=== PATIENT | male | born 1960 | race African-American/Black ===

== ENCOUNTER 2017-07-19 14:53 | Inpatient (IN) ==
[2017-07-19] MEDS ORDERED: DEXTROSE 50% 25 GM/50 ML VIAL IV PRN (20:59)
[2017-07-19] MEDS ORDERED: ONDANSETRON 4 MG/2 ML VIAL IV PRN (20:59)
[2017-07-19] MEDS ORDERED: GLUCAGON 1 MG VIAL IM PRN (20:59)
[2017-07-19] MEDS: DEXTROSE 5% NACL 0.45% 1,000 ML IV SCH (21:28)
[2017-07-19] MEDS: INSULIN REGULAR 100 UNIT/ML SUBCUT SCH (21:29)
[2017-07-19] MEDS: DOCUSATE SODIUM 100 MG CAPSULE PO SCH (21:29)
[2017-07-19 21:48] LABS: Basophils % 0.5 % (0.0-0.8); Eosinophils # 0.5 10*3/uL (0.0-0.87); Eosinophils % 6.9 % (0.00-10.9); Hematocrit 24.7 VOL% (42.0-52.0); Hemoglobin 8.2 GM/DL (14.0-18.0); Immature Granulocytes % 0.5 %; Immature Granulocytes Absolute 0.03 #; Lymphocytes # 0.9 10*3/uL (1.4-4.0); Lymphocytes % 13.3 % (21.2-54.2); Mean Corpuscular HGB Conc 33.2 GM/DL (32-36); Mean Corpuscular Hemoglobin 27 PG (27-34); Mean Corpuscular Volume 82.1 FL (87-102); Mean Platelet Volume 10.4 FL (9.6-12.0); Monocytes # 0.5 10*3/uL (0.11-0.8); Monocytes % 7.7 % (1.7-12.7); Neutrophils # 4.7 10*3/uL (1.4-7.4); Neutrophils % 71.1 % (38.7-73.9); Platelet Count 267 T/CUMM (130-400); Red Blood Count 3.01 MC/CUMM (3.8-5.5); Red Cell Distribution Width 17.6 % (9.3-17.3); White Blood Count 6.5 T/CUMM (4-12)
[2017-07-19 21:55] LABS: Apearance,Urine CLEAR (Clear); Bilirubin,Urine Negative (Negative); Blood, Urine Small mg/dL (Negative); Glucose,Urine (UA) 50 mg/dL (Negative); Ketones,Urine Negative (Negative); Nitrite,Urine Negative (Negative); Protein,Urine 100 MG/DL; RBC,Urine <1 /HPF (0-4); Urine Color Colorless (Yellow); Urine Specific Gravity 1.006 (1.001-1.035); Urine Urobilinogen < 2.0 EU/DL (0.2-1.0); WBC,Urine <1 /HPF (0-6)
[2017-07-19 22:09] LABS: Alanine Aminotransferase 15 U/L (16-61); Albumin 3.4 G/DL (3.4-5.0); Alkaline Phosphatase 88 U/L (45-117); Aspartate Amino Transferase 14 U/L (0-37); Bilirubin,Total < 0.39 MG/DL (0.2-1.0); Blood Urea Nitrogen 85 MG/DL (7-18); Calcium 6.3 MG/DL (8.5-10.1); Glucose 114 MG/DL (74-106); Osmolality,Calculated 305.4 MOS/KG (273-304); Potassium 3.4 MMOL/L (3.5-5.1); Sodium 140 MMOL/L (136-145); Total Protein 6.1 G/DL (6.4-8.3)
[2017-07-19 23:20] LABS: Hepatitis A Ab IgM Quant 0.14 Index; Hepatitis A Ab IgM Result Negative (Negative); Hepatitis B Core IgM Result Negative (Negative); Hepatitis B Surface Ag Quant < 0.10 Index; Hepatitis B Surface Ag Result Negative (Negative); Hepatitis C Virus Ab Quant 0.02 Index; Hepatitis C Virus Ab Result Negative (Negative)
[2017-07-20 06:54] LABS: Basophils # 0.1 10*3/uL (0.0-0.2); Basophils % 0.8 % (0.0-0.8); Eosinophils # 0.5 10*3/uL (0.0-0.87); Hematocrit 23.8 VOL% (42.0-52.0); Immature Granulocytes % 0.5 %; Immature Granulocytes Absolute 0.03 #; Lymphocytes % 15.9 % (21.2-54.2); Mean Corpuscular HGB Conc 33.6 GM/DL (32-36); Mean Corpuscular Hemoglobin 28 PG (27-34); Mean Corpuscular Volume 82.6 FL (87-102); Mean Platelet Volume 10.7 FL (9.6-12.0); Monocytes # 0.5 10*3/uL (0.11-0.8); Monocytes % 8.2 % (1.7-12.7); Neutrophils # 3.9 10*3/uL (1.4-7.4); Neutrophils % 65.6 % (38.7-73.9); Platelet Count 272 T/CUMM (130-400); Red Blood Count 2.88 MC/CUMM (3.8-5.5); Red Cell Distribution Width 18.1 % (9.3-17.3)
[2017-07-20] MEDS ORDERED: CLINDAMYCIN INJ 900 MG in PREMIX 1 EACH IV ONE (07:00)
[2017-07-20 07:10] LABS: Albumin 2.8 G/DL (3.4-5.0); Calcium 6.4 MG/DL (8.5-10.1); Osmolality,Calculated 306.3 MOS/KG (273-304); Phosphorous 7.2 MG/DL (2.5-4.9); Potassium 3.5 MMOL/L (3.5-5.1)
[2017-07-20] MEDS ORDERED: SODIUM CHLORIDE 0.9% 1,000 ML IV SCH (08:00)
[2017-07-20] MEDS: INSULIN REGULAR 100 UNIT/ML SUBCUT SCH ×4 (08:54→21:08)
[2017-07-20] MEDS ORDERED: HEPARIN 5,000 UNIT/1 ML VIAL ONE (09:19)
[2017-07-20] MEDS ORDERED: BUPIVACAINE 0.5% /EPI 10 ML VIAL ONE (09:19)
[2017-07-20] MEDS ORDERED: PROPOFOL 200 MG/20 ML VIAL IV ONE (10:30)
[2017-07-20] MEDS ORDERED: MIDAZOLAM 2 MG/2 ML VIAL ONE (10:31)
[2017-07-20] MEDS ORDERED: fentaNYL 100 MCG/2 ML VIAL ONE (10:31)
[2017-07-20] MEDS: CALCIUM ACETATE 667 MG CAPSULE PO SCH ×3 (11:43→17:30)
[2017-07-20] MEDS: CALCITRIOL 0.25 MCG CAPSULE PO SCH (11:50)
[2017-07-20] MEDS: amLODIPine 10 MG TABLET PO SCH (11:50)
[2017-07-20] MEDS: PANTOPRAZOLE 40 MG TABLET PO SCH (11:50)
[2017-07-20] MEDS: cloNIDine 0.1 MG TABLET PO SCH ×2 (11:50→21:07)
[2017-07-20] MEDS: DOCUSATE SODIUM 100 MG CAPSULE PO SCH ×2 (11:50→21:07)
[2017-07-20] MEDS: ENOXAPARIN 30 MG/0.3 ML SYRINGE SUBCUT SCH (11:52)
[2017-07-20] MEDS: oxyCODONE/ACETAMINOPHEN 5-325 MG TABLET PO PRN ×2 (14:18→20:10)
[2017-07-20] MEDS ORDERED: SODIUM CHLORIDE 0.9% 1,000 ML IV PRN (22:30)
[2017-07-21] MEDS: DEXTROSE 5% NACL 0.45% 1,000 ML IV SCH (00:10)
[2017-07-21 03:41] LABS: Basophils # 0.1 10*3/uL (0.0-0.2); Basophils % 0.9 % (0.0-0.8); Eosinophils # 0.6 10*3/uL (0.0-0.87); Eosinophils % 10.1 % (0.00-10.9); Hematocrit 24.6 VOL% (42.0-52.0); Hemoglobin 8.1 GM/DL (14.0-18.0); Immature Granulocytes % 0.4 %; Immature Granulocytes Absolute 0.02 #; Lymphocytes # 0.9 10*3/uL (1.4-4.0); Mean Corpuscular HGB Conc 32.9 GM/DL (32-36); Mean Corpuscular Hemoglobin 28 PG (27-34); Mean Platelet Volume 9.9 FL (9.6-12.0); Monocytes # 0.5 10*3/uL (0.11-0.8); Neutrophils # 3.4 10*3/uL (1.4-7.4); Neutrophils % 62.6 % (38.7-73.9); Platelet Count 229 T/CUMM (130-400); Red Blood Count 2.93 MC/CUMM (3.8-5.5); Red Cell Distribution Width 17.6 % (9.3-17.3); White Blood Count 5.5 T/CUMM (4-12)
[2017-07-21] MEDS: CALCIUM ACETATE 667 MG CAPSULE PO SCH ×3 (07:50→17:33)
[2017-07-21] MEDS: INSULIN REGULAR 100 UNIT/ML SUBCUT SCH ×4 (07:50→21:39)
[2017-07-21] MEDS: amLODIPine 10 MG TABLET PO SCH (07:55)
[2017-07-21] MEDS: PANTOPRAZOLE 40 MG TABLET PO SCH (07:55)
[2017-07-21] MEDS: CALCITRIOL 0.25 MCG CAPSULE PO SCH (07:55)
[2017-07-21] MEDS: DOCUSATE SODIUM 100 MG CAPSULE PO SCH ×2 (07:55→21:39)
[2017-07-21] MEDS: cloNIDine 0.1 MG TABLET PO SCH ×2 (07:55→21:39)
[2017-07-21] MEDS ORDERED: SODIUM CHLORIDE 0.9% 1,000 ML IV PRN (08:04)
[2017-07-21] MEDS ORDERED: EPOETIN ALFA 2,000 UNIT/1 ML VIAL IV PRN (10:48)
[2017-07-21] MEDS: ENOXAPARIN 30 MG/0.3 ML SYRINGE SUBCUT SCH (11:07)
[2017-07-22] MEDS: CALCITRIOL 0.25 MCG CAPSULE PO SCH (09:52)
[2017-07-22] MEDS: CALCIUM ACETATE 667 MG CAPSULE PO SCH ×3 (09:53→17:27)
[2017-07-22] MEDS: ENOXAPARIN 30 MG/0.3 ML SYRINGE SUBCUT SCH ×2 (09:53→09:55)
[2017-07-22] MEDS: PANTOPRAZOLE 40 MG TABLET PO SCH (09:53)
[2017-07-22] MEDS: amLODIPine 10 MG TABLET PO SCH (09:53)
[2017-07-22] MEDS: cloNIDine 0.1 MG TABLET PO SCH ×2 (09:53→21:14)
[2017-07-22] MEDS: DOCUSATE SODIUM 100 MG CAPSULE PO SCH ×2 (09:53→21:14)
[2017-07-22] MEDS: INSULIN REGULAR 100 UNIT/ML SUBCUT SCH ×2 (09:56→11:39)
[2017-07-23] MEDS ORDERED: HEPARIN 10,000 UNIT/10 ML VIAL IV SCH (07:30)
[2017-07-23] MEDS: cloNIDine 0.1 MG TABLET PO SCH ×2 (08:11→21:25)
[2017-07-23] MEDS: CALCIUM ACETATE 667 MG CAPSULE PO SCH ×3 (08:11→18:25)
[2017-07-23] MEDS: amLODIPine 10 MG TABLET PO SCH (08:12)
[2017-07-23] MEDS: PANTOPRAZOLE 40 MG TABLET PO SCH (08:12)
[2017-07-23] MEDS: DOCUSATE SODIUM 100 MG CAPSULE PO SCH ×2 (08:12→21:25)
[2017-07-23] MEDS: CALCITRIOL 0.25 MCG CAPSULE PO SCH (08:12)
[2017-07-23] MEDS: oxyCODONE/ACETAMINOPHEN 5-325 MG TABLET PO PRN (08:23)
[2017-07-23] MEDS ORDERED: EPOETIN ALFA 10,000 UNIT/1 ML VIAL IV PRN (09:13)
[2017-07-24] MEDS: PANTOPRAZOLE 40 MG TABLET PO SCH (10:15)
[2017-07-24] MEDS: amLODIPine 10 MG TABLET PO SCH (10:15)
[2017-07-24] MEDS: CALCIUM ACETATE 667 MG CAPSULE PO SCH ×3 (10:15→16:43)
[2017-07-24] MEDS: DOCUSATE SODIUM 100 MG CAPSULE PO SCH ×2 (10:15→20:25)
[2017-07-24] MEDS: cloNIDine 0.1 MG TABLET PO SCH ×2 (10:15→20:25)
[2017-07-24] MEDS: CALCITRIOL 0.25 MCG CAPSULE PO SCH (10:15)
[2017-07-25] MEDS: DOCUSATE SODIUM 100 MG CAPSULE PO SCH (09:04)
[2017-07-25] MEDS: CALCITRIOL 0.25 MCG CAPSULE PO SCH (09:04)
[2017-07-25] MEDS: PANTOPRAZOLE 40 MG TABLET PO SCH (09:04)
[2017-07-25] MEDS: amLODIPine 10 MG TABLET PO SCH (09:04)
[2017-07-25] MEDS: CALCIUM ACETATE 667 MG CAPSULE PO SCH ×3 (09:04→16:41)
[2017-07-25] MEDS: cloNIDine 0.1 MG TABLET PO SCH (09:04)
[2017-07-25 22:49] VITALS: BP 150/96
== END 2017-07-25 20:00 | disposition home or self-care (01) | DRG 673 ==
LOC: N.ADMINP 15:10 → N.2E 17:25
PROVIDERS: ADMIT Internal Medicine Nephrology; ATTEND Internal Medicine Nephrology

== ENCOUNTER 2020-01-12 11:39 | Inpatient (IN) ==
[2020-01-12 14:11] LABS: Basophils # 0.1 10*3/uL (0.0-0.2); Basophils % 1.4 % (0.0-0.8); Eosinophils # 0.3 10*3/uL (0.0-0.87); Hematocrit 32.8 VOL% (42.0-52.0); Hemoglobin 10.2 GM/DL (14.0-18.0); Immature Granulocytes % 0.6 %; Immature Granulocytes Absolute 0.04 #; Lymphocytes # 0.7 10*3/uL (1.4-4.0); Lymphocytes % 9.6 % (21.2-54.2); Mean Corpuscular HGB Conc 31.1 GM/DL (32-36); Mean Corpuscular Volume 93.2 FL (87-102); Mean Platelet Volume 9.6 FL (9.6-12.0); Monocytes % 7.5 % (1.7-12.7); Neutrophils % 76.9 % (38.7-73.9); Platelet Count 574 T/CUMM (130-400); Red Blood Count 3.52 MC/CUMM (3.8-5.5); Red Cell Distribution Width 18.1 % (9.3-17.3); White Blood Count 7.2 T/CUMM (4-12)
[2020-01-12 14:16] LABS: Apearance,Urine CLOUDY (Clear); Bilirubin,Urine Negative (Negative); Blood, Urine Negative (Negative); Glucose,Urine (UA) 50 mg/dL (Negative); Ketones,Urine Negative (Negative); Mucus,Urine Occasional /LPF (Occasional); Nitrite,Urine Negative (Negative); Protein,Urine >=500 MG/DL; Squamous Epithelial Cell,Urine Few /HPF (0-10); Urine Color Yellow (Yellow); Urine Specific Gravity 1.009 (1.001-1.035); Urine Urobilinogen < 2.0 EU/DL (0.2-1.0); WBC,Urine 21 /HPF (0-6)
[2020-01-12 14:31] LABS: Albumin 2.4 G/DL (3.4-5.0); Bilirubin,Total 0.5 MG/DL (0.2-1.0); Calcium 9.7 MG/DL (8.5-10.1); Ferritin 1573.8 ng/ml (26-388); Osmolality,Calculated 267.2 MOS/KG (273-304); Total Protein 9.5 G/DL (6.4-8.3)
[2020-01-12] MEDS ORDERED: DEXTROSE 10% 250 ML BAG IV PRN (16:12)
[2020-01-12] MEDS ORDERED: GLUCAGON 1 MG VIAL IM PRN (16:12)
[2020-01-12] MEDS ORDERED: ONDANSETRON 4 MG/2 ML VIAL IV PRN (16:12)
[2020-01-12] MEDS: AZITHROMYCIN INJ 500 MG in SODIUM CHLORIDE 0.9% 250 ML IV SCH (18:12)
[2020-01-12] MEDS: cefTRIAXone 1,000 MG in SYRINGE 1 EACH IV SCH (18:12)
[2020-01-12] MEDS: HEPARIN 5,000 UNIT/1 ML VIAL SUBCUT SCH (20:36)
[2020-01-12] MEDS: ACETAMINOPHEN 325 MG TABLET PO PRN (23:52)
[2020-01-13 04:01] LABS: Basophils # 0.1 10*3/uL (0.0-0.2); Basophils % 1.2 % (0.0-0.8); Eosinophils # 0.3 10*3/uL (0.0-0.87); Eosinophils % 3.9 % (0.00-10.9); Hemoglobin 8.4 GM/DL (14.0-18.0); Immature Granulocytes % 0.5 %; Immature Granulocytes Absolute 0.03 #; Lymphocytes # 0.8 10*3/uL (1.4-4.0); Lymphocytes % 12.2 % (21.2-54.2); Mean Corpuscular HGB Conc 31.1 GM/DL (32-36); Mean Corpuscular Volume 93.4 FL (87-102); Mean Platelet Volume 9.5 FL (9.6-12.0); Monocytes % 11.7 % (1.7-12.7); Neutrophils % 70.5 % (38.7-73.9); Platelet Count 506 T/CUMM (130-400); Red Blood Count 2.89 MC/CUMM (3.8-5.5); Red Cell Distribution Width 18.2 % (9.3-17.3); White Blood Count 6.6 T/CUMM (4-12)
[2020-01-13 04:35] LABS: Alanine Aminotransferase < 9 U/L (16-61); Alkaline Phosphatase 55 U/L (45-117); Aspartate Amino Transferase 12 U/L (0-37); Bilirubin,Total < 0.39 MG/DL (0.2-1.0); Blood Urea Nitrogen 18 MG/DL (7-18); Calcium 9.1 MG/DL (8.5-10.1); Estimated Glom Filtration Rate 9 ML/MIN; Glucose 107 MG/DL (74-106); Osmolality,Calculated 267.4 MOS/KG (273-304); Total Protein 7.6 G/DL (6.4-8.3)
[2020-01-13 04:58] LABS: Ferritin 1418.8 ng/ml (26-388)
[2020-01-13] MEDS: HEPARIN 5,000 UNIT/1 ML VIAL SUBCUT SCH ×3 (05:22→20:53)
[2020-01-13] MEDS ORDERED: PANTOPRAZOLE 40 MG TABLET PO SCH (09:00)
[2020-01-13] MEDS: amLODIPine 10 MG TABLET PO SCH (09:53)
[2020-01-13] MEDS: cloNIDine 0.1 MG TABLET PO SCH ×2 (09:53→20:53)
[2020-01-13] MEDS: ACETAMINOPHEN 325 MG TABLET PO PRN ×2 (12:30→20:56)
[2020-01-13 15:47] LABS: INR 1.1; PT Patient Result 11.8 SECS (9.8-11.9)
[2020-01-13] MEDS: cefTRIAXone 1,000 MG in SYRINGE 1 EACH IV SCH (17:17)
[2020-01-13] MEDS: CINACALCET 30 MG TABLET PO SCH (17:17)
[2020-01-13] MEDS: CALCIUM ACETATE 667 MG CAPSULE PO SCH (17:17)
[2020-01-13] MEDS: AZITHROMYCIN INJ 500 MG in SODIUM CHLORIDE 0.9% 250 ML IV SCH (17:18)
[2020-01-13] MEDS ORDERED: LABETALOL 20 MG/4 ML SYRINGE IV PRN (17:27)
[2020-01-14] MEDS: HEPARIN 5,000 UNIT/1 ML VIAL SUBCUT SCH ×3 (06:37→20:21)
[2020-01-14 07:04] LABS: Basophils # 0.1 10*3/uL (0.0-0.2); Basophils % 1.3 % (0.0-0.8); Eosinophils # 0.3 10*3/uL (0.0-0.87); Eosinophils % 4.4 % (0.00-10.9); Hematocrit 26.5 VOL% (42.0-52.0); Hemoglobin 8.3 GM/DL (14.0-18.0); Immature Granulocytes % 0.6 %; Immature Granulocytes Absolute 0.04 #; Lymphocytes # 0.9 10*3/uL (1.4-4.0); Lymphocytes % 13.9 % (21.2-54.2); Mean Corpuscular HGB Conc 31.3 GM/DL (32-36); Mean Platelet Volume 10.1 FL (9.6-12.0); Monocytes % 9.1 % (1.7-12.7); Neutrophils % 70.7 % (38.7-73.9); Platelet Count 493 T/CUMM (130-400); Red Blood Count 2.88 MC/CUMM (3.8-5.5); Red Cell Distribution Width 18.5 % (9.3-17.3); White Blood Count 6.4 T/CUMM (4-12)
[2020-01-14 07:16] LABS: Ferritin 1482.4 ng/ml (26-388)
[2020-01-14 07:21] LABS: Alanine Aminotransferase < 6 U/L (16-61); Albumin 1.9 G/DL (3.4-5.0); Alkaline Phosphatase 62 U/L (45-117); Aspartate Amino Transferase 8 U/L (0-37); Blood Urea Nitrogen 26 MG/DL (7-18); Calcium 9.5 MG/DL (8.5-10.1); Estimated Glom Filtration Rate 6 ML/MIN; Glucose 104 MG/DL (74-106); Osmolality,Calculated 268.5 MOS/KG (273-304); Total Protein 7.6 G/DL (6.4-8.3)
[2020-01-14] MEDS: AZITHROMYCIN 250 MG TABLET PO SCH (08:06)
[2020-01-14] MEDS: CINACALCET 30 MG TABLET PO SCH ×3 (08:06→17:49)
[2020-01-14] MEDS: amLODIPine 10 MG TABLET PO SCH (08:06)
[2020-01-14] MEDS: CALCIUM ACETATE 667 MG CAPSULE PO SCH ×4 (08:06→17:10)
[2020-01-14] MEDS: cloNIDine 0.1 MG TABLET PO SCH ×2 (08:07→20:21)
[2020-01-14] MEDS: ACETAMINOPHEN 325 MG TABLET PO PRN (08:08)
[2020-01-14] MEDS: cefTRIAXone 1,000 MG in SYRINGE 1 EACH IV SCH (17:22)
[2020-01-15] MEDS: ACETAMINOPHEN 325 MG TABLET PO PRN (00:35)
[2020-01-15 06:02] LABS: Basophils # 0.1 10*3/uL (0.0-0.2); Basophils % 1.4 % (0.0-0.8); Eosinophils # 0.3 10*3/uL (0.0-0.87); Hematocrit 29.2 VOL% (42.0-52.0); Immature Granulocytes % 0.4 %; Immature Granulocytes Absolute 0.03 #; Lymphocytes # 1.1 10*3/uL (1.4-4.0); Lymphocytes % 14.7 % (21.2-54.2); Mean Corpuscular HGB Conc 30.8 GM/DL (32-36); Mean Corpuscular Volume 93.9 FL (87-102); Mean Platelet Volume 9.7 FL (9.6-12.0); Monocytes % 8.4 % (1.7-12.7); Neutrophils % 71.1 % (38.7-73.9); Platelet Count 569 T/CUMM (130-400); Red Blood Count 3.11 MC/CUMM (3.8-5.5); Red Cell Distribution Width 18.5 % (9.3-17.3); White Blood Count 7.3 T/CUMM (4-12)
[2020-01-15 06:26] LABS: Alanine Aminotransferase < 9 U/L (16-61); Albumin 2.1 G/DL (3.4-5.0); Alkaline Phosphatase 62 U/L (45-117); Aspartate Amino Transferase 8 U/L (0-37); Bilirubin,Total < 0.39 MG/DL (0.2-1.0); Blood Urea Nitrogen 23 MG/DL (7-18); Calcium 10.1 MG/DL (8.5-10.1); Estimated Glom Filtration Rate 7 ML/MIN; Glucose 90 MG/DL (74-106); Osmolality,Calculated 267.5 MOS/KG (273-304); Total Protein 8.4 G/DL (6.4-8.3)
[2020-01-15] MEDS: HEPARIN 5,000 UNIT/1 ML VIAL SUBCUT SCH ×3 (06:26→21:15)
[2020-01-15 06:48] LABS: Ferritin 1549.7 ng/ml (26-388)
[2020-01-15] MEDS: amLODIPine 10 MG TABLET PO SCH (08:00)
[2020-01-15] MEDS: AZITHROMYCIN 250 MG TABLET PO SCH (08:00)
[2020-01-15] MEDS: cloNIDine 0.1 MG TABLET PO SCH ×2 (08:00→21:15)
[2020-01-15] MEDS: CALCIUM ACETATE 667 MG CAPSULE PO SCH ×5 (08:00→16:38)
[2020-01-15 11:42] LABS: Total Protein,Body Fluid 5.7 G/DL
[2020-01-15] MEDS: CINACALCET 30 MG TABLET PO SCH (16:38)
[2020-01-15] MEDS: cefTRIAXone 1,000 MG in SYRINGE 1 EACH IV SCH (18:03)
[2020-01-16] MEDS: HEPARIN 5,000 UNIT/1 ML VIAL SUBCUT SCH ×2 (06:11→15:50)
[2020-01-16 06:44] LABS: Ferritin 1387.8 ng/ml (26-388)
[2020-01-16] MEDS ORDERED: hydroCHLOROthiazide 12.5 MG CAPSULE PO SCH (09:00)
[2020-01-16] MEDS: AZITHROMYCIN 250 MG TABLET PO SCH (09:30)
[2020-01-16] MEDS: CALCIUM ACETATE 667 MG CAPSULE PO SCH ×2 (10:41→14:46)
[2020-01-16] MEDS: cloNIDine 0.1 MG TABLET PO SCH (14:45)
[2020-01-16] MEDS: amLODIPine 10 MG TABLET PO SCH (14:46)
[2020-01-16 15:49] VITALS: BP 164/92
== END 2020-01-16 16:20 | disposition home or self-care (01) | DRG 177 ==
LOC: N.ED 11:39 → N.EDINP 16:10 → SUATTDRO 16:10 → N.2E 17:30
PROVIDERS: ADMIT Nurse Practitioner; ATTEND Internal Medicine

== ENCOUNTER 2020-09-16 08:52 | Inpatient (IN) ==
[2020-09-16 10:53] LABS: Hematocrit 36.4 VOL% (42.0-52.0); Immature Granulocytes % 0.5 %; Immature Granulocytes Absolute 0.01 #; Lymphocytes # 0.5 10*3/uL (1.4-4.0); Lymphocytes % 26.5 % (21.2-54.2); Mean Corpuscular HGB Conc 30.2 GM/DL (32-36); Mean Corpuscular Volume 91.9 FL (87-102); Monocytes % 6.5 % (1.7-12.7); Neutrophils % 65.5 % (38.7-73.9); Platelet Count 216 T/CUMM (130-400); Red Blood Count 3.96 MC/CUMM (3.8-5.5); Red Cell Distribution Width 17.9 % (9.3-17.3)
[2020-09-16 11:13] LABS: Hypochromasia 1+; Lymphocytes 24 % (20-55); Microcytosis 1+; Platelet Estimate Adequate; Segmented Neutrophils 66 % (50-85); Total Cells Counted 100
[2020-09-16 11:20] LABS: Bilirubin,Total 0.4 MG/DL (0.2-1.0); Calcium 8.2 MG/DL (8.5-10.1); Osmolality,Calculated 271.2 MOS/KG (273-304); Potassium 4.3 MMOL/L (3.5-5.1); Total Protein 7.5 G/DL (6.4-8.3)
[2020-09-16] MEDS ORDERED: BISACODYL 5 MG TABLET PO PRN (13:59)
[2020-09-16] MEDS ORDERED: DEXTROSE 50% 25 GM/50 ML VIAL IV PRN (13:59)
[2020-09-16] MEDS ORDERED: ONDANSETRON 4 MG/2 ML VIAL IV PRN (13:59)
[2020-09-16] MEDS ORDERED: DOCUSATE SODIUM 100 MG CAPSULE PO PRN (13:59)
[2020-09-16] MEDS ORDERED: GLUCAGON 1 MG VIAL IM PRN (13:59)
[2020-09-16 14:43] LABS: PT Patient Result 10.9 SECS (9.8-11.9); Partial Thromboplastin Time 35.1 SECS (23.9-33.8)
[2020-09-16 18:03] LABS: Hepatitis B Core IgM Quant < 0.05 Index; Hepatitis B Surface Ag Quant < 0.10 Index; Hepatitis B Surface Ag Result Non-Reactive (NonReactive); Hepatitis C Virus Ab Result Non-Reactive (NonReactive)
[2020-09-16 18:10] LABS: Folate 14.2 NG/ML (5.38-24.0); Vitamin B12 > 2000 PG/ML (211-911)
[2020-09-16] MEDS ORDERED: AZITHROMYCIN INJ 500 MG in SODIUM CHLORIDE 0.9% 250 ML IV SCH (18:30)
[2020-09-16] MEDS: ASCORBIC ACID 500 MG TABLET PO SCH (21:50)
[2020-09-16] MEDS: AZITHROMYCIN INJ 500 MG in SODIUM CHLORIDE 0.9% 250 ML IV SCH (21:50)
[2020-09-16] MEDS: FAMOTIDINE 20 MG TABLET PO SCH (21:50)
[2020-09-16] MEDS: ENOXAPARIN 40 MG/0.4 ML SYRINGE SUBCUT SCH (21:50)
[2020-09-16] MEDS: ACETAMINOPHEN 325 MG TABLET PO PRN (21:51)
[2020-09-17 05:44] LABS: Basophils % 0.5 % (0.0-0.8); Eosinophils % 0.5 % (0.00-10.9); Hematocrit 33.5 VOL% (42.0-52.0); Hemoglobin 10.4 GM/DL (14.0-18.0); Immature Granulocytes % 0.5 %; Immature Granulocytes Absolute 0.01 #; Lymphocytes # 0.8 10*3/uL (1.4-4.0); Lymphocytes % 38.7 % (21.2-54.2); Mean Corpuscular Volume 90.5 FL (87-102); Monocytes % 6.6 % (1.7-12.7); Neutrophils % 53.2 % (38.7-73.9); Platelet Count 207 T/CUMM (130-400); Red Cell Distribution Width 18.2 % (9.3-17.3); White Blood Count 2.1 T/CUMM (4-12)
[2020-09-17 06:22] LABS: Band Neutrophils 6 % (0-10); Eosinophils 2 % (0-10); Lymphocytes 38 % (20-55); Segmented Neutrophils 44 % (50-85); Total Cells Counted 100
[2020-09-17 06:23] LABS: Anisocytosis 1+; Hypochromasia Slight; Macrocytosis Slight; Platelet Estimate Normal; Poikilocytosis Slight
[2020-09-17 06:32] LABS: Albumin 2.8 G/DL (3.4-5.0); Bilirubin,Total 0.6 MG/DL (0.2-1.0); Calcium 8.3 MG/DL (8.5-10.1); Osmolality,Calculated 278.1 MOS/KG (273-304); Potassium 4.5 MMOL/L (3.5-5.1); Total Protein 7.1 G/DL (6.4-8.3)
[2020-09-17] MEDS: DEXAMETHASONE 4 MG/1 ML VIAL IV SCH (09:04)
[2020-09-17] MEDS: ZINC GLUCONATE 50 MG TABLET PO SCH (09:04)
[2020-09-17] MEDS: CHOLECALCIFEROL 1,000 UNIT TABLET PO SCH (09:05)
[2020-09-17] MEDS: FAMOTIDINE 20 MG TABLET PO SCH ×2 (09:05→20:46)
[2020-09-17] MEDS: ASCORBIC ACID 500 MG TABLET PO SCH ×2 (09:05→20:46)
[2020-09-17] MEDS: AZITHROMYCIN INJ 500 MG in SODIUM CHLORIDE 0.9% 250 ML IV SCH (20:45)
[2020-09-17] MEDS: ENOXAPARIN 40 MG/0.4 ML SYRINGE SUBCUT SCH (20:46)
[2020-09-18] MEDS: ASCORBIC ACID 500 MG TABLET PO SCH ×2 (08:10→21:35)
[2020-09-18] MEDS: DEXAMETHASONE 4 MG/1 ML VIAL IV SCH (08:10)
[2020-09-18] MEDS: FAMOTIDINE 20 MG TABLET PO SCH ×2 (08:10→21:35)
[2020-09-18] MEDS: CHOLECALCIFEROL 1,000 UNIT TABLET PO SCH (08:10)
[2020-09-18] MEDS: ZINC GLUCONATE 50 MG TABLET PO SCH (08:10)
[2020-09-18] MEDS: NICOTINE 14 MG/24 HR PATCH TRANSDERM SCH (08:11)
[2020-09-18] MEDS ORDERED: ENOXAPARIN 30 MG/0.3 ML SYRINGE SUBCUT SCH (21:00)
[2020-09-18] MEDS: AZITHROMYCIN INJ 500 MG in SODIUM CHLORIDE 0.9% 250 ML IV SCH (21:36)
[2020-09-18] MEDS: ACETAMINOPHEN 325 MG TABLET PO PRN (21:37)
[2020-09-19] MEDS: FAMOTIDINE 20 MG TABLET PO SCH (08:01)
[2020-09-19] MEDS: CHOLECALCIFEROL 1,000 UNIT TABLET PO SCH (08:01)
[2020-09-19] MEDS: ZINC GLUCONATE 50 MG TABLET PO SCH (08:01)
[2020-09-19] MEDS: ASCORBIC ACID 500 MG TABLET PO SCH (08:01)
[2020-09-19] MEDS: DEXAMETHASONE 4 MG/1 ML VIAL IV SCH (08:02)
[2020-09-19] MEDS: NICOTINE 14 MG/24 HR PATCH TRANSDERM SCH (08:02)
[2020-09-19 11:29] VITALS: BP 161/97
== END 2020-09-19 11:28 | disposition home or self-care (01) | DRG 177 ==
LOC: N.TELEN 08:52 → N.ED 08:52 → N.TELEN 16:07 → N.2E 19:20
PROVIDERS: ADMIT Internal Medicine; ATTEND Internal Medicine

== ENCOUNTER 2021-03-22 05:17 | Inpatient (IN) ==
[2021-03-22] MEDS ORDERED: MIDAZOLAM 2 MG/2 ML VIAL ONE (06:28)
[2021-03-22] MEDS ORDERED: fentaNYL 100 MCG/2 ML VIAL ONE ×2 (06:28→08:40)
[2021-03-22] MEDS ORDERED: ROCURONIUM 50 MG/5 ML VIAL IV ONE ×2 (06:33→09:35)
[2021-03-22] MEDS ORDERED: LIDOCAINE 2% 5 ML VIAL ONE (06:33)
[2021-03-22] MEDS ORDERED: propofoL 200 MG/20 ML VIAL IV ONE (06:33)
[2021-03-22] MEDS ORDERED: ONDANSETRON 4 MG/2 ML VIAL ONE (06:34)
[2021-03-22] MEDS ORDERED: DEXAMETHASONE 4 MG/1 ML VIAL ONE ×2 (06:36→09:35)
[2021-03-22] MEDS ORDERED: PHENYLEPHRINE DRIP 20 MG/250 ML PREMIX IV ONE (06:37)
[2021-03-22] MEDS ORDERED: LIDOCAINE 1% 5 ML VIAL ONE (06:37)
[2021-03-22] MEDS ORDERED: ROPIVACAINE 0.5% 30 ML VIAL ONE ×2 (06:37→11:52)
[2021-03-22 06:52] LABS: Hematocrit 30.8 VOL% (42.0-52.0)
[2021-03-22 06:53] LABS: Hemoglobin 8.9 GM/DL (14.0-18.0)
[2021-03-22] MEDS ORDERED: SODIUM CHLORIDE 0.9% 250 ML IV SCH (07:00)
[2021-03-22] MEDS ORDERED: cefTRIAXone 1,000 MG in SODIUM CHLORIDE 0.9% 100 ML IV ONE (07:00)
[2021-03-22] MEDS ORDERED: DESMOPRESSIN INJ 20 MCG in SODIUM CHLORIDE 0.9% 50 ML IV ONE (09:00)
[2021-03-22] MEDS ORDERED: PHENYLEPHRINE 1 MG/10 ML SYRINGE IV ONE (09:35)
[2021-03-22] MEDS ORDERED: SODIUM CHLORIDE 0.9% 500 ML IV ONE (09:35)
[2021-03-22] MEDS ORDERED: SEVOFLURANE 1 UNIT/15 MINUTE INH ONE ×17 (09:36→12:00)
[2021-03-22] MEDS ORDERED: NEOSTIGMINE 10 MG/10 ML VIAL ONE (11:51)
[2021-03-22] MEDS ORDERED: GLYCOPYRROLATE 0.4 MG/2 ML VIAL ONE (11:51)
[2021-03-22] MEDS ORDERED: ACETAMINOPHEN INJ 1,000 MG/100 ML VIAL IV ONE (11:53)
[2021-03-22] MEDS ORDERED: ONDANSETRON 4 MG/2 ML VIAL IV PRN ×2 (12:09→12:50)
[2021-03-22] MEDS ORDERED: PROMETHAZINE 25 MG/1 ML VIAL IM PRN (12:09)
[2021-03-22] MEDS ORDERED: diphenhydrAMINE 50 MG/1 ML VIAL IV PRN (12:14)
[2021-03-22] MEDS ORDERED: SIMETHICONE CHEW 80 MG TABLET PO PRN (12:15)
[2021-03-22] MEDS: HYDROmorphone 2 MG/1 ML VIAL IV PRN ×3 (12:54→14:41)
[2021-03-22] MEDS: ACETAMINOPHEN 325 MG TABLET PO SCH ×2 (13:45→18:31)
[2021-03-22 14:27] LABS: Calcium 8.6 MG/DL (8.5-10.1); Osmolality,Calculated 271.5 MOS/KG (273-304); Potassium 4.3 MMOL/L (3.5-5.1)
[2021-03-22] MEDS: SEVELAMER CARBONATE 800 MG TABLET PO SCH ×2 (14:45→21:09)
[2021-03-22 14:53] LABS: Basophils % 0.3 % (0.0-0.8); Eosinophils % 0.1 % (0.00-10.9); Hematocrit 32.3 VOL% (42.0-52.0); Hemoglobin 9.1 GM/DL (14.0-18.0); Immature Granulocytes % 0.5 %; Immature Granulocytes Absolute 0.04 #; Lymphocytes # 0.3 10*3/uL (1.4-4.0); Lymphocytes % 2.9 % (21.2-54.2); Mean Corpuscular HGB Conc 28.2 GM/DL (32-36); Mean Corpuscular Volume 85.4 FL (87-102); Mean Platelet Volume 11.1 FL (9.6-12.0); Monocytes % 1.5 % (1.7-12.7); Neutrophils % 94.7 % (38.7-73.9); Platelet Count 323 T/CUMM (130-400); Red Blood Count 3.78 MC/CUMM (3.8-5.5); Red Cell Distribution Width 19.9 % (9.3-17.3); White Blood Count 8.7 T/CUMM (4-12)
[2021-03-22 15:00] LABS: Band Neutrophils 2 % (0-10); Hypochromasia 3+; Lymphocytes 1 % (20-55); Segmented Neutrophils 97 % (50-85); Total Cells Counted 100
[2021-03-22 15:01] LABS: Ovalocytes Few; Platelet Estimate Normal; Schistocytes Few
[2021-03-22] MEDS: oxyCODONE/ACETAMINOPHEN 5-325 MG TABLET PO PRN ×2 (16:42→18:30)
[2021-03-22] MEDS ORDERED: oxyCODONE IR 5 MG TABLET PO ONE (18:23)
[2021-03-22] MEDS: SODIUM CHLORIDE 0.9% 1,000 ML IV SCH (21:09)
[2021-03-22] MEDS: CINACALCET 30 MG TABLET PO SCH ×2 (21:09→21:15)
[2021-03-22] MEDS: ALVIMOPAN 12 MG CAPSULE PO SCH (21:09)
[2021-03-23] MEDS: oxyCODONE/ACETAMINOPHEN 5-325 MG TABLET PO PRN (02:31)
[2021-03-23] MEDS: HYDROmorphone 2 MG/1 ML VIAL IV PRN (03:46)
[2021-03-23] MEDS: ACETAMINOPHEN 325 MG TABLET PO SCH ×3 (04:32→12:30)
[2021-03-23 06:30] LABS: Calcium 9.2 MG/DL (8.5-10.1); Osmolality,Calculated 268.7 MOS/KG (273-304); Potassium 5.8 MMOL/L (3.5-5.1)
[2021-03-23 06:43] LABS: Basophils # 0.1 10*3/uL (0.0-0.2); Basophils % 0.6 % (0.0-0.8); Eosinophils % 0.1 % (0.00-10.9); Hematocrit 30.7 VOL% (42.0-52.0); Immature Granulocytes % 0.4 %; Immature Granulocytes Absolute 0.03 #; Lymphocytes # 0.7 10*3/uL (1.4-4.0); Lymphocytes % 7.9 % (21.2-54.2); Mean Corpuscular HGB Conc 28.7 GM/DL (32-36); Mean Platelet Volume 9.6 FL (9.6-12.0); Monocytes % 6.1 % (1.7-12.7); Neutrophils % 84.9 % (38.7-73.9); Platelet Count 475 T/CUMM (130-400); Red Blood Count 3.61 MC/CUMM (3.8-5.5); Red Cell Distribution Width 19.7 % (9.3-17.3); White Blood Count 8.6 T/CUMM (4-12)
[2021-03-23 06:44] LABS: Hemoglobin 8.8 GM/DL (14.0-18.0)
[2021-03-23 06:45] LABS: Hypochromasia 2+
[2021-03-23 06:46] LABS: Microcytosis 2+; Ovalocytes Few
[2021-03-23 06:47] LABS: Platelet Estimate Increased; Tear Drop Cells Slight
[2021-03-23] MEDS ORDERED: SODIUM POLYSTYRENE SULFATE 15 GM/60 ML BOTTLE PO STA (07:33)
[2021-03-23] MEDS: ALVIMOPAN 12 MG CAPSULE PO SCH ×2 (08:29→21:26)
[2021-03-23] MEDS: amLODIPine 10 MG TABLET PO SCH (08:29)
[2021-03-23] MEDS: SEVELAMER CARBONATE 800 MG TABLET PO SCH ×3 (08:30→21:26)
[2021-03-23] MEDS: PANTOPRAZOLE 40 MG TABLET PO SCH (08:30)
[2021-03-23] MEDS ORDERED: ACETAMINOPHEN 325 MG TABLET PO PRN (15:57)
[2021-03-23] MEDS: SODIUM CHLORIDE 0.9% 1,000 ML IV SCH (16:40)
[2021-03-23] MEDS: CINACALCET 30 MG TABLET PO SCH (21:26)
[2021-03-24] MEDS: SODIUM CHLORIDE 0.9% 1,000 ML IV SCH (02:15)
[2021-03-24 05:12] LABS: Calcium 9.2 MG/DL (8.5-10.1); Potassium 4.2 MMOL/L (3.5-5.1)
[2021-03-24 05:29] LABS: Basophils # 0.1 10*3/uL (0.0-0.2); Basophils % 0.7 % (0.0-0.8); Eosinophils % 0.4 % (0.00-10.9); Hematocrit 31.6 VOL% (42.0-52.0); Immature Granulocytes % 0.6 %; Immature Granulocytes Absolute 0.04 #; Lymphocytes # 0.5 10*3/uL (1.4-4.0); Lymphocytes % 6.8 % (21.2-54.2); Mean Corpuscular HGB Conc 29.1 GM/DL (32-36); Mean Corpuscular Volume 82.9 FL (87-102); Mean Platelet Volume 10.1 FL (9.6-12.0); Monocytes % 5.3 % (1.7-12.7); Neutrophils % 86.2 % (38.7-73.9); Platelet Count 488 T/CUMM (130-400); Red Blood Count 3.81 MC/CUMM (3.8-5.5); Red Cell Distribution Width 19.8 % (9.3-17.3); White Blood Count 7.2 T/CUMM (4-12)
[2021-03-24 05:30] LABS: Hemoglobin 9.2 GM/DL (14.0-18.0)
[2021-03-24] MEDS: ALVIMOPAN 12 MG CAPSULE PO SCH ×2 (07:35→21:03)
[2021-03-24] MEDS: SEVELAMER CARBONATE 800 MG TABLET PO SCH ×4 (07:35→21:05)
[2021-03-24] MEDS: PANTOPRAZOLE 40 MG TABLET PO SCH (07:35)
[2021-03-24] MEDS: amLODIPine 10 MG TABLET PO SCH (07:35)
[2021-03-24] MEDS: cloNIDine 0.1 MG TABLET PO PRN (11:40)
[2021-03-24 13:14] LABS: Bilirubin,Urine Negative (Negative); Blood, Urine Small mg/dL (Negative); Glucose,Urine (UA) Negative (Negative); Ketones,Urine Negative (Negative); Mucus,Urine Occasional /LPF (Occasional); Nitrite,Urine Negative (Negative); Protein,Urine 100 MG/DL; RBC,Urine 3 /HPF (0-4); Squamous Epithelial Cell,Urine Occasional /HPF (0-10); Urine Appearance Slightly Hazy (Clear); Urine Color Yellow (Yellow); Urine Urobilinogen < 2.0 EU/DL (0.2-1.0)
[2021-03-24] MEDS: ALBUTEROL/IPRATROPIUM 3 ML NEB RESP TX SCH ×2 (15:59→20:10)
[2021-03-24] MEDS: cefTRIAXone 1,000 MG in SODIUM CHLORIDE 0.9% 100 ML IV SCH (17:03)
[2021-03-24] MEDS: CINACALCET 30 MG TABLET PO SCH (21:03)
[2021-03-25] MEDS: ALBUTEROL/IPRATROPIUM 3 ML NEB RESP TX SCH ×2 (07:00→20:14)
[2021-03-25 07:14] LABS: Calcium 8.6 MG/DL (8.5-10.1); Osmolality,Calculated 280.7 MOS/KG (273-304); Potassium 3.9 MMOL/L (3.5-5.1)
[2021-03-25 07:22] LABS: Basophils % 0.8 % (0.0-0.8); Eosinophils # 0.3 10*3/uL (0.0-0.87); Eosinophils % 5.2 % (0.00-10.9); Hematocrit 28.6 VOL% (42.0-52.0); Hemoglobin 7.9 GM/DL (14.0-18.0); Immature Granulocytes % 0.6 %; Immature Granulocytes Absolute 0.03 #; Lymphocytes # 0.6 10*3/uL (1.4-4.0); Lymphocytes % 11.4 % (21.2-54.2); Mean Corpuscular HGB Conc 27.6 GM/DL (32-36); Mean Corpuscular Volume 86.1 FL (87-102); Mean Platelet Volume 9.1 FL (9.6-12.0); Platelet Count 394 T/CUMM (130-400); Red Blood Count 3.32 MC/CUMM (3.8-5.5); White Blood Count 5.2 T/CUMM (4-12)
[2021-03-25] MEDS: amLODIPine 10 MG TABLET PO SCH (08:39)
[2021-03-25] MEDS: ALVIMOPAN 12 MG CAPSULE PO SCH ×2 (08:39→20:04)
[2021-03-25] MEDS: SEVELAMER CARBONATE 800 MG TABLET PO SCH ×3 (08:39→17:15)
[2021-03-25] MEDS: PANTOPRAZOLE 40 MG TABLET PO SCH (08:39)
[2021-03-25] MEDS ORDERED: BISACODYL 10 MG SUPP RECTAL ONE (09:24)
[2021-03-25] MEDS: cefTRIAXone 1,000 MG in SODIUM CHLORIDE 0.9% 100 ML IV SCH (17:11)
[2021-03-25] MEDS: CINACALCET 30 MG TABLET PO SCH (20:06)
[2021-03-25] MEDS: SODIUM CHLORIDE 0.9% 1,000 ML IV SCH (23:15)
[2021-03-26] MEDS: SEVELAMER CARBONATE 800 MG TABLET PO SCH ×2 (00:01→07:44)
[2021-03-26] MEDS: cloNIDine 0.1 MG TABLET PO PRN (03:49)
[2021-03-26] MEDS: amLODIPine 10 MG TABLET PO SCH ×2 (05:03→09:17)
[2021-03-26 06:27] LABS: Calcium 8.2 MG/DL (8.5-10.1); Osmolality,Calculated 272.1 MOS/KG (273-304); Potassium 3.5 MMOL/L (3.5-5.1)
[2021-03-26 06:29] LABS: Basophils % 0.7 % (0.0-0.8); Eosinophils # 0.4 10*3/uL (0.0-0.87); Eosinophils % 6.9 % (0.00-10.9); Hematocrit 27.6 VOL% (42.0-52.0); Hemoglobin 7.9 GM/DL (14.0-18.0); Immature Granulocytes % 0.2 %; Immature Granulocytes Absolute 0.01 #; Lymphocytes # 0.6 10*3/uL (1.4-4.0); Lymphocytes % 10.8 % (21.2-54.2); Mean Corpuscular HGB Conc 28.6 GM/DL (32-36); Mean Corpuscular Volume 85.2 FL (87-102); Mean Platelet Volume 9.8 FL (9.6-12.0); Monocytes % 6.3 % (1.7-12.7); Neutrophils % 75.1 % (38.7-73.9); Platelet Count 363 T/CUMM (130-400); Red Blood Count 3.24 MC/CUMM (3.8-5.5); Red Cell Distribution Width 19.9 % (9.3-17.3); White Blood Count 5.7 T/CUMM (4-12)
[2021-03-26] MEDS: ALBUTEROL/IPRATROPIUM 3 ML NEB RESP TX SCH (08:32)
[2021-03-26] MEDS: PANTOPRAZOLE 40 MG TABLET PO SCH (08:44)
[2021-03-26] MEDS: ALVIMOPAN 12 MG CAPSULE PO SCH (08:44)
[2021-03-26 09:15] VITALS: BP 175/96
[2021-03-26 10:03] LABS: Hypochromasia 4+; Microcytosis 1+
== END 2021-03-26 12:10 | disposition home or self-care (01) | DRG 656 ==
LOC: N.OR 05:17 → N.SDSINP 05:20 → N.OB 12:09
PROVIDERS: ADMIT Surgery; ATTEND Surgery

== ENCOUNTER 2021-10-25 20:26 | Observation (INO) ==
[2021-10-25] MEDS ORDERED: LABETALOL 20 MG/4 ML SYRINGE IV STA (20:47)
[2021-10-25 21:02] LABS: Eosinophils # 0.4 10*3/uL (0.0-0.87); Eosinophils % 8.3 % (0.00-10.9); Hematocrit 35.6 VOL% (42.0-52.0); Hemoglobin 11.1 GM/DL (14.0-18.0); Immature Granulocytes % 0.2 %; Immature Granulocytes Absolute 0.01 #; Lymphocytes # 0.8 10*3/uL (1.4-4.0); Lymphocytes % 19.2 % (21.2-54.2); Mean Corpuscular HGB Conc 31.2 GM/DL (32-36); Mean Corpuscular Volume 92.7 FL (87-102); Mean Platelet Volume 10.4 FL (9.6-12.0); Monocytes % 9.7 % (1.7-12.7); Neutrophils % 61.6 % (38.7-73.9); Platelet Count 167 T/CUMM (130-400); Red Blood Count 3.84 MC/CUMM (3.8-5.5); Red Cell Distribution Width 17.3 % (9.3-17.3); White Blood Count 4.2 T/CUMM (4-12)
[2021-10-25 21:14] LABS: PT Patient Result 10.9 SECS (10.5-12.0)
[2021-10-25 21:26] LABS: Alanine Aminotransferase < 6 U/L (16-61); Albumin 3.1 G/DL (3.4-5.0); Alkaline Phosphatase 88 U/L (45-117); Aspartate Amino Transferase 10 U/L (0-37); Blood Urea Nitrogen 51 MG/DL (7-18); Calcium 9.4 MG/DL (8.5-10.1); Carbon Dioxide 30 MMOL/L (21-32); Estimated Glom Filtration Rate 4 ML/MIN; Glucose 122 MG/DL (74-106); Potassium 4.3 MMOL/L (3.5-5.1); Sodium 136 MMOL/L (136-145); Total Protein 7.5 G/DL (6.4-8.2)
[2021-10-25] MEDS ORDERED: GLUCAGON 1 MG VIAL IM PRN (22:26)
[2021-10-25] MEDS ORDERED: ONDANSETRON 4 MG/2 ML VIAL IV PRN (22:26)
[2021-10-25] MEDS ORDERED: ACETAMINOPHEN 325 MG TABLET PO PRN (22:26)
[2021-10-25] MEDS ORDERED: DEXTROSE 10% 250 ML BAG IV PRN (22:26)
[2021-10-25] MEDS: LABETALOL 20 MG/4 ML SYRINGE IV PRN (22:45)
[2021-10-26] MEDS: HYDROmorphone 1 MG/1 ML SYRINGE IV PRN ×2 (03:55→22:29)
[2021-10-26 04:21] LABS: Basophils # 0.1 10*3/uL (0.0-0.2); Basophils % 1.2 % (0.0-0.8); Eosinophils # 0.4 10*3/uL (0.0-0.87); Eosinophils % 8.6 % (0.00-10.9); Hematocrit 32.7 VOL% (42.0-52.0); Hemoglobin 10.3 GM/DL (14.0-18.0); Immature Granulocytes % 0.5 %; Immature Granulocytes Absolute 0.02 #; Lymphocytes # 0.9 10*3/uL (1.4-4.0); Lymphocytes % 20.5 % (21.2-54.2); Mean Corpuscular HGB Conc 31.5 GM/DL (32-36); Mean Corpuscular Volume 92.6 FL (87-102); Mean Platelet Volume 11.5 FL (9.6-12.0); Neutrophils % 58.2 % (38.7-73.9); Platelet Count 169 T/CUMM (130-400); Red Blood Count 3.53 MC/CUMM (3.8-5.5); Red Cell Distribution Width 17.4 % (9.3-17.3); White Blood Count 4.2 T/CUMM (4-12)
[2021-10-26 04:37] LABS: Calcium 8.9 MG/DL (8.5-10.1); Potassium 4.4 MMOL/L (3.5-5.1)
[2021-10-26] MEDS: LABETALOL 20 MG/4 ML SYRINGE IV PRN ×2 (05:15→10:15)
[2021-10-26] MEDS ORDERED: ceFAZolin 2,000 MG/50 ML DUPLEX IV ONE (06:58)
[2021-10-26] MEDS ORDERED: LIDOCAINE 1%/EPI INJ 20 ML VIAL ONE (08:15)
[2021-10-26] MEDS ORDERED: BUPIVACAINE MPF 0.25% 30 ML VIAL ONE (08:15)
[2021-10-26] MEDS ORDERED: HEPARIN 5,000 UNIT/1 ML VIAL ONE (08:15)
[2021-10-26] MEDS ORDERED: fentaNYL 100 MCG/2 ML VIAL ONE (08:30)
[2021-10-26] MEDS ORDERED: LIDOCAINE 2% 5 ML VIAL ONE (08:30)
[2021-10-26] MEDS ORDERED: DEXMEDETOMIDINE 200 MCG/2 ML VIAL ONE (08:30)
[2021-10-26] MEDS ORDERED: propofoL 200 MG/20 ML VIAL IV ONE (08:30)
[2021-10-26] MEDS ORDERED: SODIUM CHLORIDE 0.9% 250 ML IV SCH (08:30)
[2021-10-26] MEDS ORDERED: MIDAZOLAM 2 MG/2 ML VIAL ONE (08:30)
[2021-10-26] MEDS ORDERED: ceFAZolin 1,000 MG VIAL ONE (08:54)
[2021-10-26] MEDS ORDERED: HYDROmorphone 1 MG/1 ML SYRINGE IV PRN (09:31)
[2021-10-26] MEDS ORDERED: diphenhydrAMINE 50 MG/1 ML VIAL IV PRN (09:31)
[2021-10-26] MEDS ORDERED: MEPERIDINE 25 MG/1 ML VIAL IV PRN (09:31)
[2021-10-26] MEDS ORDERED: PROMETHAZINE INJ 25 MG in SODIUM CHLORIDE 0.9% 50 ML IV PRN (09:31)
[2021-10-26] MEDS ORDERED: ONDANSETRON 4 MG/2 ML VIAL IV PRN (09:31)
[2021-10-26] MEDS ORDERED: PANTOPRAZOLE 40 MG TABLET PO ONE (10:14)
[2021-10-26] MEDS: PANTOPRAZOLE 40 MG TABLET PO SCH (10:19)
[2021-10-26] MEDS ORDERED: MEPERIDINE 25 MG/1 ML VIAL ONE (12:08)
[2021-10-26] MEDS ORDERED: ONDANSETRON 4 MG/2 ML VIAL ONE (12:09)
[2021-10-26] MEDS ORDERED: VANCOMYCIN INJ 500 MG in SODIUM CHLORIDE 0.9% 100 ML IV PRN (12:39)
[2021-10-26] MEDS ORDERED: GENTAMICIN INJ 120 MG/100 ML PREMIX IV PRN (12:43)
[2021-10-26] MEDS ORDERED: GENTAMICIN INJ 200 MG in SODIUM CHLORIDE 0.9% 100 ML IV ONE (14:00)
[2021-10-26] MEDS ORDERED: VANCOMYCIN INJ 1,750 MG in SODIUM CHLORIDE 0.9% 500 ML IV ONE (15:00)
[2021-10-27] MEDS: LABETALOL 20 MG/4 ML SYRINGE IV PRN (04:42)
[2021-10-27 05:58] LABS: Basophils % 0.8 % (0.0-0.8); Eosinophils # 0.4 10*3/uL (0.0-0.87); Eosinophils % 7.5 % (0.00-10.9); Hematocrit 32.6 VOL% (42.0-52.0); Hemoglobin 10.1 GM/DL (14.0-18.0); Immature Granulocytes % 0.6 %; Immature Granulocytes Absolute 0.03 #; Lymphocytes # 0.4 10*3/uL (1.4-4.0); Lymphocytes % 8.6 % (21.2-54.2); Mean Corpuscular Volume 93.1 FL (87-102); Mean Platelet Volume 11.3 FL (9.6-12.0); Monocytes % 8.4 % (1.7-12.7); Neutrophils % 74.1 % (38.7-73.9); Platelet Count 162 T/CUMM (130-400); Red Cell Distribution Width 17.3 % (9.3-17.3); White Blood Count 4.8 T/CUMM (4-12)
[2021-10-27 06:23] LABS: Calcium 8.4 MG/DL (8.5-10.1); Osmolality,Calculated 286.2 MOS/KG (273-304); Potassium 4.8 MMOL/L (3.5-5.1)
[2021-10-27] MEDS ORDERED: amLODIPine 5 MG TABLET PO SCH (09:00)
[2021-10-27] MEDS: PANTOPRAZOLE 40 MG TABLET PO SCH (09:47)
[2021-10-27 11:50] VITALS: BP 168/93
== END 2021-10-27 18:02 | disposition home or self-care (01) ==
LOC: N.EDINP 20:26 → N.ED 20:26 → SUATTDRO 22:26 → N.5E 10-26 08:00
PROVIDERS: ADMIT Internal Medicine; ATTEND Hospitalist

== ENCOUNTER 2022-03-31 05:42 | Inpatient (IN) ==
[2022-03-27 16:33] LABS: Basophils # 0.1 10*3/uL (0.0-0.2); Basophils % 2.5 % (0.0-0.8); Eosinophils # 0.2 10*3/uL (0.0-0.87); Eosinophils % 5.7 % (0.00-10.9); Hematocrit 37.3 VOL% (42.0-52.0); Hemoglobin 11.9 GM/DL (14.0-18.0); Immature Granulocytes % 0.4 %; Immature Granulocytes Absolute 0.01 #; Lymphocytes # 0.9 10*3/uL (1.4-4.0); Lymphocytes % 31.6 % (21.2-54.2); Mean Corpuscular HGB Conc 31.9 GM/DL (32-36); Mean Corpuscular Volume 91.6 FL (87-102); Mean Platelet Volume 11.4 FL (9.6-12.0); Monocytes # 0.2 10*3/uL (0.11-0.8); Monocytes % 7.4 % (1.7-12.7); Neutrophils % 52.4 % (38.7-73.9); Platelet Count 178 T/CUMM (130-400); Red Blood Count 4.07 MC/CUMM (3.8-5.5); Red Cell Distribution Width 17.7 % (9.3-17.3); White Blood Count 2.8 T/CUMM (4-12)
[2022-03-27 16:54] LABS: Calcium 10.2 MG/DL (8.5-10.1); Osmolality,Calculated 276.7 MOS/KG (273-304); Potassium 3.8 MMOL/L (3.5-5.1)
[~2022-03-31 05:42] MED LIST: SODIUM CHLORIDE 0.9% 250 ML IV SCH
[2022-03-31] MEDS ORDERED: DEXAMETHASONE 4 MG/1 ML VIAL ONE (05:58)
[2022-03-31] MEDS ORDERED: MIDAZOLAM 2 MG/2 ML VIAL ONE (05:58)
[2022-03-31] MEDS ORDERED: ROPIVACAINE 0.5% 30 ML VIAL ONE (05:58)
[2022-03-31] MEDS ORDERED: DEXMEDETOMIDINE 200 MCG/2 ML VIAL ONE (05:58)
[2022-03-31] MEDS ORDERED: LIDOCAINE 1% 5 ML VIAL ONE (05:58)
[2022-03-31] MEDS ORDERED: ERTAPENEM 1,000 MG in SODIUM CHLORIDE 0.9% 100 ML IV ONE (06:00)
[2022-03-31] MEDS ORDERED: ALVIMOPAN 12 MG CAPSULE PO ONE (06:00)
[2022-03-31] MEDS ORDERED: FAMOTIDINE 20 MG TABLET PO ONE (06:10)
[2022-03-31] MEDS ORDERED: GABAPENTIN 400 MG CAPSULE PO ONE (06:10)
[2022-03-31 06:44] LABS: Hematocrit 36.6 VOL% (42.0-52.0); Hemoglobin 11.5 GM/DL (14.0-18.0)
[2022-03-31] MEDS ORDERED: TRIAMCINOLONE ACETONIDE 40 MG/1 ML VIAL ONE (07:32)
[2022-03-31] MEDS ORDERED: fentaNYL 100 MCG/2 ML VIAL ONE (07:32)
[2022-03-31] MEDS ORDERED: SODIUM CHLORIDE 0.9% 250 ML IV ONE (07:35)
[2022-03-31] MEDS ORDERED: ONDANSETRON 4 MG/2 ML VIAL ONE ×2 (07:39→09:23)
[2022-03-31] MEDS ORDERED: ROCURONIUM 50 MG/5 ML VIAL IV ONE (07:59)
[2022-03-31] MEDS ORDERED: PHENYLEPHRINE 1 MG/10 ML SYRINGE IV ONE (07:59)
[2022-03-31] MEDS ORDERED: ETOMIDATE 40 MG/20 ML VIAL IV ONE (07:59)
[2022-03-31] MEDS ORDERED: DESFLURANE 1 UNIT/15 MINUTE INH ONE (07:59)
[2022-03-31] MEDS ORDERED: PHENYLEPHRINE 10 MG/1 ML VIAL IV ONE (08:10)
[2022-03-31] MEDS ORDERED: SODIUM CHLORIDE 0.9% 100 ML IV ONE (08:10)
[2022-03-31] MEDS ORDERED: TISSUE ADHESIVE 1 EACH APPLICATOR TOP ONE (08:10)
[2022-03-31] MEDS ORDERED: INDOCYANINE GREEN 25 MG VIAL IV ONE (08:16)
[2022-03-31] MEDS ORDERED: ONDANSETRON 4 MG/2 ML VIAL IV PRN ×2 (09:20→10:02)
[2022-03-31] MEDS ORDERED: MEPERIDINE 25 MG/1 ML VIAL IV PRN (09:20)
[2022-03-31] MEDS ORDERED: PROMETHAZINE INJ 25 MG in SODIUM CHLORIDE 0.9% 50 ML IV PRN (09:20)
[2022-03-31] MEDS ORDERED: diphenhydrAMINE 50 MG/1 ML VIAL IV PRN (09:20)
[2022-03-31] MEDS ORDERED: HYDROmorphone 1 MG/1 ML SYRINGE ONE (09:23)
[2022-03-31] MEDS: HYDROmorphone 1 MG/1 ML SYRINGE IV PRN ×4 (09:25→09:40)
[2022-03-31] MEDS ORDERED: KETOROLAC 30 MG/1 ML VIAL IV SCH (10:02)
[2022-03-31] MEDS ORDERED: HYDROmorphone 1 MG/1 ML SYRINGE IV PRN (10:02)
[2022-03-31 10:24] LABS: Basophils % 0.5 % (0.0-0.8); Eosinophils # 0.1 10*3/uL (0.0-0.87); Hemoglobin 11.3 GM/DL (14.0-18.0); Immature Granulocytes % 0.2 %; Immature Granulocytes Absolute 0.01 #; Lymphocytes # 0.5 10*3/uL (1.4-4.0); Lymphocytes % 8.6 % (21.2-54.2); Mean Corpuscular HGB Conc 31.4 GM/DL (32-36); Mean Corpuscular Volume 94.2 FL (87-102); Mean Platelet Volume 11.9 FL (9.6-12.0); Monocytes # 0.1 10*3/uL (0.11-0.8); Monocytes % 1.5 % (1.7-12.7); Neutrophils % 88.2 % (38.7-73.9); Platelet Count 191 T/CUMM (130-400); Red Blood Count 3.82 MC/CUMM (3.8-5.5); Red Cell Distribution Width 17.3 % (9.3-17.3); White Blood Count 6.1 T/CUMM (4-12)
[2022-03-31 10:51] LABS: Calcium 9.1 MG/DL (8.5-10.1); Osmolality,Calculated 278.1 MOS/KG (273-304); Potassium 4.4 MMOL/L (3.5-5.1)
[2022-03-31] MEDS: LACTATED RINGERS 1,000 ML IV SCH ×2 (11:01→22:59)
[2022-03-31] MEDS: HEPARIN 5,000 UNIT/1 ML VIAL SUBCUT SCH ×2 (12:10→22:56)
[2022-03-31] MEDS: DICLOFENAC 1% GEL 100 GM TUBE TOP SCH ×3 (12:11→22:57)
[2022-03-31] MEDS: SEVELAMER CARBONATE 800 MG TABLET PO SCH ×2 (12:11→16:38)
[2022-03-31] MEDS ORDERED: CINACALCET 30 MG TABLET PO SCH (17:00)
[2022-03-31] MEDS: ALVIMOPAN 12 MG CAPSULE PO SCH (21:25)
[2022-04-01 05:08] LABS: Basophils % 0.4 % (0.0-0.8); Eosinophils % 0.1 % (0.00-10.9); Hemoglobin 9.2 GM/DL (14.0-18.0); Immature Granulocytes % 0.1 %; Immature Granulocytes Absolute 0.01 #; Lymphocytes # 0.6 10*3/uL (1.4-4.0); Lymphocytes % 8.2 % (21.2-54.2); Mean Corpuscular HGB Conc 30.7 GM/DL (32-36); Mean Corpuscular Volume 95.2 FL (87-102); Mean Platelet Volume 12.1 FL (9.6-12.0); Monocytes # 0.5 10*3/uL (0.11-0.8); Monocytes % 6.7 % (1.7-12.7); Neutrophils % 84.5 % (38.7-73.9); Platelet Count 155 T/CUMM (130-400); Red Blood Count 3.15 MC/CUMM (3.8-5.5); Red Cell Distribution Width 17.3 % (9.3-17.3); White Blood Count 7.3 T/CUMM (4-12)
[2022-04-01 05:34] LABS: Calcium 8.8 MG/DL (8.5-10.1); Osmolality,Calculated 280.2 MOS/KG (273-304); Potassium 5.3 MMOL/L (3.5-5.1)
[2022-04-01] MEDS: HEPARIN 5,000 UNIT/1 ML VIAL SUBCUT SCH (06:59)
[2022-04-01] MEDS: LACTATED RINGERS 1,000 ML IV SCH (07:00)
[2022-04-01] MEDS: PANTOPRAZOLE 40 MG TABLET PO SCH (07:02)
[2022-04-01] MEDS: amLODIPine 10 MG TABLET PO SCH (08:15)
[2022-04-01] MEDS: SEVELAMER CARBONATE 800 MG TABLET PO SCH ×3 (08:16→17:31)
[2022-04-01] MEDS: DICLOFENAC 1% GEL 100 GM TUBE TOP SCH ×5 (08:17→21:06)
[2022-04-01] MEDS: ALVIMOPAN 12 MG CAPSULE PO SCH (08:17)
[2022-04-01] MEDS: LEFLUNOMIDE 10 MG TABLET PO SCH (08:17)
[2022-04-01] MEDS ORDERED: HEPARIN 10,000 UNIT/10 ML VIAL IV PRN (14:49)
[2022-04-02 05:08] LABS: Basophils % 0.6 % (0.0-0.8); Eosinophils # 0.2 10*3/uL (0.0-0.87); Eosinophils % 3.6 % (0.00-10.9); Hematocrit 28.6 VOL% (42.0-52.0); Hemoglobin 8.8 GM/DL (14.0-18.0); Immature Granulocytes % 0.4 %; Immature Granulocytes Absolute 0.02 #; Lymphocytes # 0.5 10*3/uL (1.4-4.0); Mean Corpuscular HGB Conc 30.8 GM/DL (32-36); Mean Corpuscular Volume 94.7 FL (87-102); Mean Platelet Volume 12.3 FL (9.6-12.0); Monocytes # 0.3 10*3/uL (0.11-0.8); Neutrophils % 80.4 % (38.7-73.9); Platelet Count 148 T/CUMM (130-400); Red Blood Count 3.02 MC/CUMM (3.8-5.5); Red Cell Distribution Width 17.3 % (9.3-17.3); White Blood Count 5.3 T/CUMM (4-12)
[2022-04-02] MEDS: PANTOPRAZOLE 40 MG TABLET PO SCH (06:22)
[2022-04-02] MEDS: amLODIPine 10 MG TABLET PO SCH (08:40)
[2022-04-02] MEDS: SEVELAMER CARBONATE 800 MG TABLET PO SCH ×2 (08:41→11:40)
[2022-04-02] MEDS: LEFLUNOMIDE 10 MG TABLET PO SCH (08:41)
[2022-04-02] MEDS: DICLOFENAC 1% GEL 100 GM TUBE TOP SCH (08:45)
[2022-04-02 11:39] VITALS: BP 109/68
== END 2022-04-02 12:00 | disposition home or self-care (01) | DRG 329 ==
LOC: N.OR 05:42 → N.SDSINP 05:45 → N.3E 09:53
PROVIDERS: ADMIT Surgery; ATTEND Surgery